=== PATIENT | male | born 1940 | race Caucasian/White ===

== ENCOUNTER 2017-04-22 00:35 | Day surgery (SDC) | payer MEDICARE, OTHER ==
[~2017-04-22] VITALS: Ht 177.8 cm; Wt 114.0 kg
[2017-04-22] VITALS (10 sets, daily range): BP systolic 118–125; BP diastolic 61–89; PULSE 63–78; RESP 13–24; O2SAT 93–97
[~2017-04-22 00:35] MED LIST: ASPI-628 PO; ATA16T PO; CETI10TA18 PO; CHOL200049 PO; ESOM40CA41 PO; FLAX100031 PO; FOLI0.4T2 PO; GLUC-91 PO; HYDR12.55 PO; MULT-285 PO; OMEG500C PO; POTA20TA16 PO; PULM.25NEB IH; TAMS0.4C98 PO; VIT1CAPS8 PO
[2017-04-22] MEDS ORDERED: 0.9% Sodium Chloride 1,000 ML IV ONE (06:37)
--- NOTE | 2017-04-22 07:00 | NUR ---
ADMISSION NOTE MALE PT ADMITTED FOR HEART CATH. DISCUSSED PLAN OF CARE WITH PT AND . SEE ADMIT AND FLOW SHEET
[2017-04-22 07:43] LABS: BASOPHILS % (AUTO) 0.2 % (0-3); MONOCYTES % (AUTO) 8.6 % (4-12); Mean Corpuscular Hemoglobin 28.7 pg (27.0-35.0); Mean Corpuscular Volume 82.7 fL (81-100); NEUTROPHILS % (AUTO) 74.1 % (40-74); Platelet Count 183 bil/L (150-400)
[2017-04-22] MEDS ORDERED: ASPI-973 PO (08:05)
[2017-04-22] MEDS ORDERED: CHOL10008 PO (08:05)
[2017-04-22] MEDS ORDERED: CETI10CA PO (08:05)
[2017-04-22] MEDS ORDERED: FLAX100038 PO (08:05)
[2017-04-22] MEDS ORDERED: MULT1CAP33 PO (08:06)
[2017-04-22] MEDS ORDERED: Heparin 10,000 Unit/1,000 mL NS Premix IV ONE (08:48)
[2017-04-22] MEDS ORDERED: Heparin 1,000 Units/500 mL NS Premix IV ONE (08:48)
[2017-04-22] MEDS ORDERED: fentaNYL-PF 50 mCg/mL 2 mL Inj ONE (08:54)
--- NOTE | 2017-04-22 12:15 | NUR ---
DISCHARGE NOTE UP IN ROOM, INSTRUCTIONS GIVEN. HOME WITH
--- NOTE | 2017-04-23 14:34 | CS94 ---
[address] [address] DIAGNOSTIC CARDIAC CATHETERIZATION PATIENT: Cassi BAÑUELOS : 1940 MR#: [id number] ADMIT: 04/22/2017 JOB ID: [id number] SERVICE DATE: 04/22/2017 CHIEF COMPLAINT: Chest pain. PATIENT PRESENTATION: Patient is a 76-year-old man with exertional chest pressure during physical activity and abnormal stress test. PROCEDURES PERFORMED: 1. Left heart catheterization--selective coronary angiograms. 2. Right common femoral artery vascular access under ultrasound guidance. 3. Hemostasis via StarClose closure device. 4. Ventriculogram. METHOD: Following informed consent, patient was prepped and draped in usual sterile fashion. A 6-Italian sheath was placed in the right common femoral artery. Sheath placement was confirmed via femoral angiogram. JL4 and JR4 catheters were used to engage left main and right coronary artery ostia, respectively. Hand injection craniocaudal angulation was used to obtain selective coronary angiograms. All exchanges were performed over a wire. Pigtail was advanced in the left ventricle. Left ventricular end-diastolic pressure was recorded. The pigtail was withdrawn from the left ventricle into the aorta under continuous hemodynamic monitoring. StarClose was used to obtain hemostasis. No complications in the immediate postprocedure period. FINDINGS: Right common femoral artery vascular access: Right common femoral artery gives rise to SFA and profunda. The sheath enters the right common femoral artery just above the bifurcation, just below the femoral head. There is no evidence of contrast extravasation or dissection. CORONARY ANGIOGRAMS: Left main is a normal caliber vessel. It gives rise to LAD and the circumflex. No obstructive lesions are seen. There is no dampening on engagement. Excellent blowback. Left anterior descending: This is a normal caliber vessel which wraps around the apex. It gives rise to a small first diagonal branch, a large second diagonal branch, large bifurcating third diagonal branch, small fourth diagonal branch and multiple septal perforators. No obstructive lesions are seen. Circumflex is a nondominant vessel. It gives rise to a large first obtuse marginal branch, small second obtuse marginal branch, a large third obtuse marginal branch, and medium 4th obtuse marginal branch. Right coronary artery is a dominant vessel. It gives rise to PDA and posterolateral branch. No obstructive lesions are seen. Ventriculogram: Patient has normal LV systolic function. No focal wall motion abnormalities and no mitral regurgitation. INCIDENTAL FINDINGS: Patient has a dual-chamber permanent pacemaker visualized during the procedure. HEMODYNAMIC MEASUREMENT: Left ventricular end-diastolic pressure is 12 mmHg. IMPRESSION: No hemodynamically significant coronary artery disease to explain patient's symptoms of chest discomfort. PLAN: The patient will continue his home meds. The patient was instructed to start new medication: Amlodipine 2.5 mg daily just in case his chest discomfort is related to vasospasm. Thank you very much for the opportunity to participate in his care.
== END 2017-04-22 23:59 | disposition home or self-care (01) ==
LOC: SOUO 00:35
PROVIDERS: ATTEND Internal Medicine
DX: R07.89 Other chest pain (principal); R94.39 Abnormal result of other cardiovascular function study; G47.33 Obstructive sleep apnea (adult) (pediatric); I44.39 Other atrioventricular block; Z95.0 Presence of cardiac pacemaker; I49.8 Other specified cardiac arrhythmias; Z79.82 Long term (current) use of aspirin; I10 Essential (primary) hypertension; E78.5 Hyperlipidemia, unspecified; I44.2 Atrioventricular block, complete; Z87.891 Personal history of nicotine dependence
CPT/HCPCS: 36415; 80048; 85025; 93005; 93458; 99152; C1760; C1769; J1200; J1644; J2060; J2250; J3010; J7030; Q9967